=== PATIENT | male | born 1955 | race Caucasian/White ===

== ENCOUNTER 2016-11-29 08:52 | Day surgery (SDC) | payer MEDICARE, BC ==
[~2016-11-29 08:52] MED LIST: Lactated Ringers 1,000 ML IV SCH
[2016-11-29] MEDS ORDERED: fentaNYL 100 MCG/2 ML SDV ONE (10:09)
[2016-11-29] MEDS ORDERED: Propofol 200 MG/20 ML SDV ONE (10:09)
[2016-11-29 13:20] VITALS: BP 123/78
--- NOTE | 2016-11-29 14:32 | OR ---
SURGERY DATE: 11/29/2016. REFERRING PROVIDER: Zohaib Leonard MD. PRE-OPERATIVE DIAGNOSIS: Chronic dysphagia, status post previous cervical fusion surgery. He does get frequent regurgitation of food. Positive tobacco use. The patient does have barium swallow scheduled for tomorrow. POST-OPERATIVE DIAGNOSIS: 1. Mildly prominent area of atypical cells to the pyloric ring/sphincter. This was biopsied x3 bites using the cold forceps. 2. Moderate gastritis involving mainly the antrum. Small antral ulceration present. Biopsies taken from the antrum for path and H. pylori. Biopsy also taken from the periphery of the antral ulcer. 3. No evidence to explain the patient's upper dysphagia. I did not notice any diverticula of the esophagus or pharyngeal area. No pharyngeal masses, strictures, rings noted. Scope passed easily into the esophagus. PROCEDURE: Esophagogastroduodenoscopy with cold biopsy x2 sites. SURGEON: Juan Murphy M.D. ANESTHESIA: Monitored anesthesia care. Wiliam is a 61-year-old male who was brought to the endoscope suite after discussion of risks and benefits (including but not limited to reaction to medication, bleeding, infection, aspiration, perforation). Informed consent was obtained for monitored anesthesia care and esophagogastroduodenoscopy along with possible biopsy and/or dilatation. Pre-procedure exam including oral cavity was unremarkable. IV, oxygen, and monitors were placed. Patient was placed in the left lateral position and sedation was administered. A bite block was placed gently and scope lightly lubricated and passed through the bite block and over the tongue. Hypopharynx and vocal cords were visualized and unremarkable. Scope was passed through the cricopharynx and into the esophagus. The scope was then passed through the distal esophagus and the GE junction was visualized and photographed. The GE junction was unremarkable. Vocal cords were visualized and unremarkable. The scope was advanced into the stomach and gastric nichols was suctioned. Pylorus was identified and intubated and then the scope was advanced to the third portion of the duodenum. The second and third portions of the duodenum were unremarkable. The duodenal bulb was visualized and unremarkable. The scope was brought back into the stomach. The pylorus and the antrum were remarkable for moderate gastritis with a small antral ulceration present. The pyloric ring/sphincter did have mildly prominent area of atypical glandular-like cells. Three bites using the cold forceps were taken from this area and this area was noted to be quite firm. Cold biopsy also taken from the antrum as well as the peripheral aspect of the antral ulcer. Cold biopsy x2 bites was taken from this area to check for H. pylori and sent for path. Angularis, fundus, body, and cardia were unremarkable except for a couple small areas of petechiae consistent with mild gastritis. The stomach was desufflated of air and then the scope was slowly withdrawn, and the esophagus was closely visualized during withdrawal all the way into the posterior pharynx. In the upper esophagus there was an area of heterotopic type mucosa. Cold biopsy x2 bites was taken of this area and sent for path. The patient tolerated the procedure well and went to recovery in stable condition. The patient was monitored until at baseline status. Findings and discharge instructions were reviewed and the patient was discharged in good condition. COMPLICATIONS: None. TOTAL TIME: 15 minutes. ESTIMATED BLOOD LOSS: About 1 mL. RECOMMENDATIONS/FOLLOW-UP: We will await results of path report to determine ideal followup interval. We may consider repeat EGD in 3-6 months to followup on these findings. I will have the patient hold his aspirin for 3 days to limit any chance of bleeding. I have also provided a prescription for omeprazole 40 mg daily. I did recommend to the patient to limit or avoid NSAIDs as much as possible at least until this heals up over the next 4 to 8 weeks. I would like to kindly thank Dr. Zohaib Leonard for this referral. DMB: 11/29/2016 12:06:56 MODL: 11/29/2016 14:15:40 /[id number] MTDD
== END 2016-11-29 12:15 | disposition home or self-care (01) ==
LOC: VM.SDS 08:52
PROVIDERS: ATTEND Family Medicine
DX: K31.9 Disease of stomach and duodenum, unspecified (principal); K29.70 Gastritis, unspecified, without bleeding; K25.9 Gastric ulcer, unspecified as acute or chronic, without hemorrhage or perforation; R13.10 Dysphagia, unspecified; Z98.1 Arthrodesis status; M17.0 Bilateral primary osteoarthritis of knee; F33.9 Major depressive disorder, recurrent, unspecified; Z86.73 Personal history of transient ischemic attack (TIA), and cerebral infarction without residual deficits; G43.909 Migraine, unspecified, not intractable, without status migrainosus; E78.5 Hyperlipidemia, unspecified; R41.3 Other amnesia; F17.210 Nicotine dependence, cigarettes, uncomplicated; M54.2 Cervicalgia; G89.29 Other chronic pain; Z79.82 Long term (current) use of aspirin; Z79.899 Other long term (current) drug therapy
CPT/HCPCS: 00740; 43239; 88305; J2704; J3010; J7120

== ENCOUNTER 2019-12-26 20:39 | Emergency (ER) | payer MEDICARE, BC ==
[2019-12-26] MEDS ORDERED: Lidocaine 1% 30 ML SDV INJECT ONE (20:46)
[2019-12-26 20:53] VITALS: BP 141/84; PULSE 76
--- NOTE | 2019-12-26 21:06 | EDM.PDOC ---
ED HPI GENERAL MEDICAL PROBLEM - General Chief Complaint: Laceration Stated Complaint: LACERATION TO LEFT HAND Time Seen by Provider: 12/26/19 20:45 Source of Information: Reports: Patient History Limitations: Reports: No Limitations - History of Present Illness INITIAL COMMENTS - FREE TEXT/NARRATIVE: Patient presents to ER with a laceration to his left thumb. He was grinding in his shop when his hand slipped and caught. Has good movement of his thumb. States did apply pressure for about 1 1/2 hours prior to coming here as he was having trouble controlling the bleeding. Unsure of last tetanus. Onset: Today, Sudden Duration: Hour(s): Location: Reports: Upper Extremity, Left Quality: Reports: Throbbing Severity: Mild Associated Symptoms: Reports: No Other Symptoms Treatments HOST COORDINATOR: Reports: Dressing(s) Top of Right Thumb Pain Score (Numeric/FACES): 2 - Related Data Allergies Allergy/AdvReac Type Severity Reaction Status Date / Time No Known Drug Allergies Allergy Other Verified 12/26/19 20:56 Home Meds: Home Meds Acetaminophen/HYDROcodone [[place] 325-10 MG] 1 tab PO Q6H PRN 08/03/14 [History] diazePAM [Diazepam] 5 mg PO TID PRN 08/03/14 [History] Aspirin 325 mg PO DAILY 11/23/16 [History] Calcium Carbonate [Calcium] 1,000 mg PO BID 11/23/16 [History] Ibuprofen [Advil] 600 mg PO ASDIRECTED PRN 11/23/16 [History] Ondansetron HCl [Zofran] 4 mg PO Q4H PRN 11/23/16 [History] atorvaSTATin [Lipitor] 40 mg PO DAILY 11/23/16 [History] DULoxetine [Cymbalta] 30 mg PO DAILY 09/23/18 [History] Past Medical History HEENT History: Reports: None Other HEENT History: States difficulty swallowing Cardiovascular History: Reports: High Cholesterol Respiratory History: Reports: None Gastrointestinal History: Reports: GERD Genitourinary History: Reports: None Musculoskeletal History: Reports: Neck Pain, Chronic, Osteoarthritis Other Musculoskeletal History: MYOFACIAL PAIN. CERVICALALGIA. ATROPHY OF MUSCLES OF MULTIPLE SITES Neurological History: Reports: CVA, Head Trauma, Migraines, Other (See Below) Other Neuro History: memory loss Psychiatric History: Reports: Anxiety, Depression Endocrine/Metabolic History: Reports: None Hematologic History: Reports: None Immunologic History: Reports: None Oncologic (Cancer) History: Reports: Basal Cell Carcinoma - Past Surgical History HEENT Surgical History: Reports: None Cardiovascular Surgical History: Reports: None Respiratory Surgical History: Reports: None GI Surgical History: Reports: EGD Neurological Surgical History: Reports: C-Spine, Spinal Fusion, Other (See Below ) Other Neurological Surgeries/Procedures: spine sx afe 11 for tumor Musculoskeletal Surgical History: Reports: Arthroscopic Knee, Other (See Below) Other Musculoskeletal Surgeries/Procedures:: CERVICAL FUSION. SPINE SURGERY Oncologic Surgical History: Reports: None Dermatological Surgical History: Reports: Skin Biopsy, Other (See Below) Social & Family History - Family History Family Medical History: Noncontributory Cardiac: Reports: CT (mother's father) Neurological: Reports: Dementia (Father, paternal grandmother) Endocrine/Metabolic: Reports: Diabetes, type II (mother) Oncologic: Reports: Leukemia (sister) - Tobacco Use Smoking Status *Q: Current Every Day Smoker - Living Situation & Occupation Living situation: Reports: , with Spouse Occupation: Disabled (tool and die technician, disabled 2008) ED ROS GENERAL - Review of Systems Review Of Systems: Comprehensive ROS is negative, except as noted in HPI. ED EXAM, SKIN/RASH Exam: See Below Exam Limited By: No Limitations General Appearance: Alert, WD/WN, No Apparent Distress Extremities: Normal Range of Motion (Good strength noted with flexion and extension of thumb), Normal Capillary Refill, Other (wound to left thumb) Neurological: Alert, Oriented ED SKIN PROCEDURES - Laceration/Wound Repair Left Digit - 1st (Thumb) Appearance: Superficial, Linear, Mildly Contaminated Distal NVT: Neuro & Vascular Intact Anesthetic Type: Local Local Anesthesia - Lidocaine (Xylocaine): 1% Plain Local Anesthetic Volume: 4cc Skin Prep: Saline Exploration/Debridement/Repair: Wound Explored, Explored to Base Closed with: Sutures Lac/Wound length In cm: 2 Suture Size: 4-0 # of Sutures: 4 Suture Type: Nylon, Interrupted, Simple Sterile Dressing Applied: Nurse Tetanus Status Addressed: Yes Complications: No Course - Vital Signs Last Recorded V/S: Last Vital Signs Temp 98.1 F 12/26/19 20:52 Pulse 76 12/26/19 20:52 Resp 12 12/26/19 20:52 BP 141/84 H 12/26/19 20:52 Pulse Ox 97 12/26/19 20:52 - Orders/Labs/Meds Meds: Medications Discontinued Medications Generic Name Dose Route Start Last Admin Trade Name Anu PRN Reason Stop Dose Admin Lidocaine HCl 30 ml 12/26/19 20:46 Xylocaine-Mpf 1% INJECT 12/26/19 20:47 ONETIME ONE Departure - Departure Time of Disposition: 21:08 Disposition: Home, Self-Care 01 Condition: Fair Clinical Impression: Broken skin Laceration of thumb Qualifiers: Encounter type: initial encounter Laterality: left - Discharge Information *PRESCRIPTION DRUG MONITORING PROGRAM REVIEWED*: No *COPY OF PRESCRIPTION DRUG MONITORING REPORT IN PATIENT CARROL: No Instructions: Laceration Care, Adult, [id number] Referrals: Zohaib Leonard MD [Primary Care Provider] - Forms: ED Department Discharge Additional Instructions: 1. Keep wound clean and dry 2. Keep wound covered while at work 3. Wound care instructions- see handout. Watch for signs of infection 4. Sutures out in 10 days 5. Follow up if any concerns. Sepsis Event Note - Evaluation Sepsis Screening Result: No Definite Risk - Focused Exam Vital Signs: Vital Signs Temp Pulse Resp BP Pulse Ox 12/26/19 20:52 98.1 F 76 12 141/84 H 97 Date Exam was Performed: 12/26/19 Time Exam was Performed: 21:06
[2019-12-26] MEDS ORDERED: Diphtheria,Pertussis(Acell),Tetanus Vaccine 0.5 ML Syringe IM ONE (21:07)
[2019-12-26] MEDS ORDERED: Lidocaine 1% 30 ML SDV ONE (21:52)
== END 2019-12-26 21:32 | disposition home or self-care (01) ==
LOC: SUPCPDRO 20:39 → VM.ED 20:39
DX: S61.012A Laceration without foreign body of left thumb without damage to nail, initial encounter (principal); F17.210 Nicotine dependence, cigarettes, uncomplicated; Z79.899 Other long term (current) drug therapy; Z79.82 Long term (current) use of aspirin; W26.9XXA Contact with unspecified sharp object(s), initial encounter
CPT/HCPCS: 12001; 90471; 90715; 99282-25; 99283-GF; J2001

== ENCOUNTER 2022-08-31 08:34 | Day surgery (SDC) | payer MEDICARE, BC ==
[~2022-08-31 08:34] MED LIST changes: +Sodium Chloride 0.9% 10 ML Syringe FLUSH PRN
[2022-08-31] MEDS ORDERED: Propofol 200 MG/20 ML SDV ONE (09:47)
[2022-08-31] MEDS ORDERED: fentaNYL 100 MCG/2 ML SDV ONE (09:47)
[2022-08-31 10:49] VITALS: PULSE 51
[2022-08-31 11:11] VITALS: BP 108/64
== END 2022-08-31 11:35 | disposition home or self-care (01) ==
LOC: VM.SDS 08:34
PROVIDERS: ATTEND Student in an Organized Health Care Education/Training Program
DX: K21.00 Gastro-esophageal reflux disease with esophagitis, without bleeding (principal); K25.9 Gastric ulcer, unspecified as acute or chronic, without hemorrhage or perforation; R13.10 Dysphagia, unspecified; K31.4 Gastric diverticulum; G89.29 Other chronic pain; M54.2 Cervicalgia; M48.02 Spinal stenosis, cervical region; G62.9 Polyneuropathy, unspecified; F41.9 Anxiety disorder, unspecified; M62.519 Muscle wasting and atrophy, not elsewhere classified, unspecified shoulder; F32.A Depression, unspecified; Z79.899 Other long term (current) drug therapy
CPT/HCPCS: 00731; 43239; 88305; J2704; J3010; J7120

== ENCOUNTER 2023-09-09 15:31 | Emergency (ER) | payer MEDICARE, BC ==
[2023-09-09 16:08] LABS: BASOPHILS ABSOLUTE AUTO 0.1 x10^3/uL (0.0-0.2); BASOPHILS PERCENT AUTO 0.6 % (0.2-1.2); EOSINOPHILS ABSOLUTE AUTO 0.4 x10^3/uL (0.0-0.5); EOSINOPHILS PERCENT AUTO 3.6 % (0.0-4.0); HEMATOCRIT 39.9 % (40.0-52.0); HEMOGLOBIN 13.1 g/dL (14.0-18.0); IMMATURE GRAN ABSOLUTE AUTO 0.01 x10^3/uL (0.00-0.07); LYMPHOCYTES ABSOLUTE AUTO 2.1 x10^3/uL (1.0-4.8); LYMPHOCYTES PERCENT AUTO 19.9 % (25.0-50.0); MEAN CORPUSCULAR HEMOGLOBIN 30.8 pg (26.0-32.0); MEAN CORPUSCULAR HGB CONC 32.8 g/dL (32.0-36.0); MEAN CORPUSCULAR VOLUME 93.9 fL (78.0-93.0); MONOCYTES ABSOLUTE AUTO 0.6 x10^3/uL (0.0-0.8); MONOCYTES PERCENT AUTO 5.3 % (2.0-11.0); NEUTROPHILS ABSOLUTE AUTO 7.6 x10^3/uL (1.8-7.7); NEUTROPHILS PERCENT AUTO 70.5 % (50.0-80.0); PLATELET COUNT,PLT 355 x10^3/uL (130-400); RED BLOOD CELL COUNT 4.25 x10^6/uL (4.5-6.0); WHITE BLOOD CELL COUNT,WBC 10.8 x10^3/uL (4.0-10.0)
[2023-09-09 16:24] LABS: A/G RATIO 0.62; ALBUMIN 2.9 g/dL (3.4-5.0); ANION GAP 14.6 mmol/L (5-15); BILIRUBIN TOTAL 0.4 mg/dL (0.2-1.0); C-REACTIVE PROTEIN 2.64 mg/dL (<=0.30); CALCIUM 9.2 mg/dL (8.5-10.1); CREATININE 0.9 mg/dL (0.70-1.30); EST CRCL DRUG DOSING (CG) 73.44 mL/min; POTASSIUM,K 4.6 mmol/L (3.5-5.1); PROTEIN TOTAL,TP 7.6 g/dL (6.4-8.2)
[2023-09-09 17:29] VITALS: BP 125/72; PULSE 75
== END 2023-09-09 17:15 | disposition home or self-care (01) ==
LOC: VM.ED 15:31
DX: J18.9 Pneumonia, unspecified organism (principal); I50.9 Heart failure, unspecified
CPT/HCPCS: 36415; 71046; 80053; 85025; 86140; 99283; 99284

== ENCOUNTER 2025-01-05 14:36 | Inpatient (IN) | payer MEDICARE, BC ==
[2025-01-05] MEDS ORDERED: Sodium Chloride 0.9% 10 ML Syringe FLUSH PRN (14:45)
[2025-01-05 14:55] LABS: BASOPHILS PERCENT AUTO 0.2 % (0.2-1.2); EOSINOPHILS ABSOLUTE AUTO 0.3 x10^3/uL (0.0-0.5); EOSINOPHILS PERCENT AUTO 1.4 % (0.0-4.0); HEMATOCRIT 37.7 % (40.0-52.0); HEMOGLOBIN 12.4 g/dL (14.0-18.0); IMMATURE GRAN ABSOLUTE AUTO 0.14 x10^3/uL (0.00-0.07); LYMPHOCYTES ABSOLUTE AUTO 1.7 x10^3/uL (1.0-4.8); LYMPHOCYTES PERCENT AUTO 9.2 % (25.0-50.0); MEAN CORPUSCULAR HEMOGLOBIN 30.1 pg (26.0-32.0); MEAN CORPUSCULAR HGB CONC 32.9 g/dL (32.0-36.0); MEAN CORPUSCULAR VOLUME 91.5 fL (78.0-93.0); MONOCYTES ABSOLUTE AUTO 1.3 x10^3/uL (0.0-0.8); MONOCYTES PERCENT AUTO 7.2 % (2.0-11.0); NEUTROPHILS PERCENT AUTO 81.2 % (50.0-80.0); PLATELET COUNT,PLT 404 x10^3/uL (130-400); RED BLOOD CELL COUNT 4.12 x10^6/uL (4.5-6.0); WHITE BLOOD CELL COUNT,WBC 18.4 x10^3/uL (4.0-10.0)
[2025-01-05 15:21] LABS: PROTHROMBIN TIME 10.9 SEC (9.6-12.0)
[2025-01-05 15:21] LABS: LACTIC ACID 1.4 mmol/L (0.4-2.0)
[2025-01-05 15:29] LABS: A/G RATIO 0.44; ALANINE AMINOTRANSFERASE,ALT 101 U/L (16-63); ALBUMIN 2.2 g/dL (3.4-5.0); ALKALINE PHOSPHATASE 401 U/L (46-116); ASPARTATE AMNIOTRANSFERASE,AST 56 U/L (15-37); BILIRUBIN TOTAL 0.5 mg/dL (0.2-1.0); BLOOD UREA NITROGEN,BUN 24 mg/dL (7-18); CALCIUM 9.3 mg/dL (8.5-10.1); CARBON DIOXIDE,CO2 27 mmol/L (21-32); CHLORIDE,CL 98 mmol/L (98-107); CREATININE 1.1 mg/dL (0.70-1.30); GLUCOSE RANDOM 152 mg/dL (70-99); POTASSIUM,K 4.3 mmol/L (3.5-5.1); PRO B-TYPE NATRIUR PEPT,BNPPRO 659 pg/mL (<=125); PROTEIN TOTAL,TP 7.2 g/dL (6.4-8.2); SODIUM,NA 135 mmol/L (136-145)
[2025-01-05 15:31] LABS: ANION GAP 14.3 mmol/L (5-15); ESTIMATED GFR 72 mL/min (>=60)
[2025-01-05 15:37] LABS: C-REACTIVE PROTEIN 30.69 mg/dL (<=0.50)
[2025-01-05] MEDS: cefTRIAXone 1 GM Vial IVPUSH ONE (15:40)
[2025-01-05] MEDS: Iopamidol 755 Mg/ML 100 ML Bottle IVPUSH ONE (16:44)
[2025-01-05] MEDS ORDERED: Albuterol/Ipratropium 3.0-0.5 MG/3 ML Neb Soln NEB PRN (17:32)
[2025-01-05] MEDS ORDERED: Ondansetron 4 MG Tab.DIS PO PRN (17:32)
[2025-01-05] MEDS ORDERED: Ondansetron 4 MG/2 ML SDV IV PRN (17:32)
[2025-01-05] MEDS ORDERED: oxyCODONE 5 MG Tab PO PRN (17:32)
[2025-01-05] MEDS ORDERED: Melatonin 3 MG Tab PO PRN (17:32)
[2025-01-05] MEDS ORDERED: Naloxone 0.4 MG/ML SDV IVPUSH PRN (17:32)
[2025-01-05] MEDS ORDERED: HYDROmorphone 0.5 MG/0.5 ML Syringe IVPUSH PRN (17:32)
[2025-01-05] MEDS ORDERED: Acetaminophen/HYDROcodone 325-10 MG Tab PO PRN (17:38)
[2025-01-05] MEDS ORDERED: Diazepam 5 MG Tab PO PRN (17:38)
[2025-01-05] MEDS: Cefepime 2 GM in Sodium Chloride 0.9% 100 ML IV ONE (18:15)
[2025-01-05] MEDS: VANCOmycin 1.5 GM/300 ML 1.5 GM in Premix Bag 1 BAG IV ONE (18:47)
[2025-01-05] MEDS: Meloxicam 7.5 MG Tab PO SCH (21:51)
[2025-01-06] MEDS: Cefepime 2 GM in Sodium Chloride 0.9% 100 ML IV SCH (02:04)
[2025-01-06] MEDS: VANCOmycin 750 MG in Sodium Chloride 0.9% 250 ML IV SCH (06:35)
[2025-01-06 07:07] LABS: BASOPHILS PERCENT AUTO 0.1 % (0.2-1.2); EOSINOPHILS ABSOLUTE AUTO 0.4 x10^3/uL (0.0-0.5); EOSINOPHILS PERCENT AUTO 2.9 % (0.0-4.0); HEMATOCRIT 35.9 % (40.0-52.0); HEMOGLOBIN 11.8 g/dL (14.0-18.0); IMMATURE GRAN ABSOLUTE AUTO 0.15 x10^3/uL (0.00-0.07); LYMPHOCYTES ABSOLUTE AUTO 1.7 x10^3/uL (1.0-4.8); LYMPHOCYTES PERCENT AUTO 11.2 % (25.0-50.0); MEAN CORPUSCULAR HEMOGLOBIN 29.8 pg (26.0-32.0); MEAN CORPUSCULAR HGB CONC 32.9 g/dL (32.0-36.0); MEAN CORPUSCULAR VOLUME 90.7 fL (78.0-93.0); MONOCYTES ABSOLUTE AUTO 1.3 x10^3/uL (0.0-0.8); MONOCYTES PERCENT AUTO 9.1 % (2.0-11.0); NEUTROPHILS ABSOLUTE AUTO 11.2 x10^3/uL (1.8-7.7); NEUTROPHILS PERCENT AUTO 75.7 % (50.0-80.0); PLATELET COUNT,PLT 398 x10^3/uL (130-400); RED BLOOD CELL COUNT 3.96 x10^6/uL (4.5-6.0); WHITE BLOOD CELL COUNT,WBC 14.7 x10^3/uL (4.0-10.0)
[2025-01-06 07:25] LABS: CALCIUM 9.1 mg/dL (8.5-10.1); CREATININE 0.8 mg/dL (0.70-1.30); EST CRCL DRUG DOSING (CG) 77.53 mL/min
[2025-01-06] MEDS: Enoxaparin 40 MG/0.4 ML Syringe SUBCUT SCH (09:06)
[2025-01-06] MEDS: Aspirin 81 MG Tab.EC PO SCH (09:06)
[2025-01-06] MEDS: atorvaSTATin 40 MG Tab PO SCH (09:06)
[2025-01-06] MEDS: Tamsulosin 0.4 MG Cap.ER PO SCH (09:06)
[2025-01-06] MEDS: VARENICLINE TARTRATE 1 MG PO SCH (09:45)
[2025-01-06] MEDS: Lactobacillus Rhamnosus GG (Probiotic) Cap PO SCH (11:52)
[2025-01-06] MEDS: VANCOmycin 1 GM in Sodium Chloride 0.9% 250 ML IV SCH (18:40)
[2025-01-07] MEDS: Cefepime 2 GM in Sodium Chloride 0.9% 100 ML IV SCH (06:18)
[2025-01-07 06:37] VITALS: PULSE 80
[2025-01-07 07:09] LABS: BASOPHILS PERCENT AUTO 0.2 % (0.2-1.2); EOSINOPHILS ABSOLUTE AUTO 0.4 x10^3/uL (0.0-0.5); EOSINOPHILS PERCENT AUTO 3.6 % (0.0-4.0); HEMATOCRIT 33.6 % (40.0-52.0); LYMPHOCYTES ABSOLUTE AUTO 1.8 x10^3/uL (1.0-4.8); LYMPHOCYTES PERCENT AUTO 15.7 % (25.0-50.0); MEAN CORPUSCULAR HGB CONC 32.7 g/dL (32.0-36.0); MEAN CORPUSCULAR VOLUME 91.6 fL (78.0-93.0); MONOCYTES PERCENT AUTO 8.3 % (2.0-11.0); NEUTROPHILS ABSOLUTE AUTO 8.1 x10^3/uL (1.8-7.7); NEUTROPHILS PERCENT AUTO 71.3 % (50.0-80.0); PLATELET COUNT,PLT 388 x10^3/uL (130-400); RED BLOOD CELL COUNT 3.67 x10^6/uL (4.5-6.0); WHITE BLOOD CELL COUNT,WBC 11.4 x10^3/uL (4.0-10.0)
[2025-01-07 07:34] LABS: ALBUMIN 1.7 g/dL (3.4-5.0); CREATININE 0.8 mg/dL (0.70-1.30); EST CRCL DRUG DOSING (CG) 77.53 mL/min; POTASSIUM,K 3.9 mmol/L (3.5-5.1)
[2025-01-07 08:03] LABS: A/G RATIO 0.37; ANION GAP 12.9 mmol/L (5-15); BILIRUBIN TOTAL 0.5 mg/dL (0.2-1.0); CALCIUM 8.8 mg/dL (8.5-10.1); PROTEIN TOTAL,TP 6.3 g/dL (6.4-8.2)
[2025-01-07 08:04] LABS: VANCOMYCIN RANDOM 28.3 ug/mL (5.0-10.0)
[2025-01-07 09:34] VITALS: BP 156/68
[2025-01-08 05:11] LABS: BASO'S 0 /cu mm; EO'S 0 /cu mm; LYMPH'S 518 /cu mm; MONO'S 150 /cu mm; OTHER 0 /cu mm; PMN'S 167 /cu mm
== END 2025-01-07 10:20 | disposition home or self-care (01) | DRG 193 ==
LOC: VM.ED 14:36 → VM.MS 15:54
PROVIDERS: ADMIT Internal Medicine; ATTEND Internal Medicine
PROC: 0W9B3ZZ Drainage of Left Pleural Cavity, Percutaneous Approach (ICD-10-PCS; principal; 2025-01-06)
DX: J18.9 Pneumonia, unspecified organism (principal); J90 Pleural effusion, not elsewhere classified; J15.9 Unspecified bacterial pneumonia; J96.01 Acute respiratory failure with hypoxia; J91.8 Pleural effusion in other conditions classified elsewhere; I50.32 Chronic diastolic (congestive) heart failure; E44.0 Moderate protein-calorie malnutrition; E78.00 Pure hypercholesterolemia, unspecified; K21.9 Gastro-esophageal reflux disease without esophagitis; M19.90 Unspecified osteoarthritis, unspecified site; F41.8 Other specified anxiety disorders; G89.29 Other chronic pain; G43.909 Migraine, unspecified, not intractable, without status migrainosus; F32.9 Major depressive disorder, single episode, unspecified; F17.210 Nicotine dependence, cigarettes, uncomplicated; R91.1 Solitary pulmonary nodule; N40.0 Benign prostatic hyperplasia without lower urinary tract symptoms; G47.00 Insomnia, unspecified; Z68.26 Body mass index [BMI] 26.0-26.9, adult; Z79.1 Long term (current) use of non-steroidal anti-inflammatories (NSAID); Z79.02 Long term (current) use of antithrombotics/antiplatelets; Z79.82 Long term (current) use of aspirin; Z79.899 Other long term (current) drug therapy; Z86.73 Personal history of transient ischemic attack (TIA), and cerebral infarction without residual deficits; Z98.1 Arthrodesis status; Z98.890 Other specified postprocedural states; Z79.891 Long term (current) use of opiate analgesic
CPT/HCPCS: 36415; 71045; 71275; 80053; 83605; 83735; 83880; 84484; 85025; 85379; 85610; 85730; 86140; 87428; 93005; 96374; 99285; J0696; 71046; 80048; 80202; 82945; 83615; 84157; 87070; 87205; 88112; 88305; 89051; 94667; 94760; 99284; A9270-GY; J0692; J1650; J3370; J3372; J7050; Q9967

== ENCOUNTER 2025-05-30 16:40 | Inpatient (IN) | payer MEDICARE, BC ==
[2025-05-30] MEDS ORDERED: Sodium Chloride 0.9% 10 ML Syringe FLUSH PRN (17:07)
[2025-05-30 17:25] LABS: BASOPHILS ABSOLUTE AUTO 0.1 x10^3/uL (0.0-0.2); BASOPHILS PERCENT AUTO 0.4 % (0.2-1.2); EOSINOPHILS ABSOLUTE AUTO 0.2 x10^3/uL (0.0-0.5); EOSINOPHILS PERCENT AUTO 1.2 % (0.0-4.0); IMMATURE GRAN ABSOLUTE AUTO 0.04 x10^3/uL (0.00-0.07); IMMATURE GRAN PERCENT AUTO 0.30 % (0.00-0.43); LYMPHOCYTES ABSOLUTE AUTO 2.2 x10^3/uL (1.0-4.8); LYMPHOCYTES PERCENT AUTO 16.2 % (25.0-50.0); MONOCYTES ABSOLUTE AUTO 0.7 x10^3/uL (0.0-0.8); MONOCYTES PERCENT AUTO 5.3 % (2.0-11.0); NEUTROPHILS ABSOLUTE AUTO 10.4 x10^3/uL (1.8-7.7); NEUTROPHILS PERCENT AUTO 76.6 % (50.0-80.0); PLATELET COUNT,PLT 249 x10^3/uL (130-400); RED BLOOD CELL COUNT 4.83 x10^6/uL (4.5-6.0); WHITE BLOOD CELL COUNT,WBC 13.5 x10^3/uL (4.0-10.0)
[2025-05-30 17:57] LABS: A/G RATIO 0.69; ALANINE AMINOTRANSFERASE,ALT 25.0 U/L (16-63); ASPARTATE AMNIOTRANSFERASE,AST 16.0 U/L (15-37); BILIRUBIN TOTAL 0.3 mg/dL (0.2-1.0); BLOOD UREA NITROGEN,BUN 25.0 mg/dL (7-18); CARBON DIOXIDE,CO2 26.0 mmol/L (21-32); CHLORIDE,CL 105.0 mmol/L (98-107); CREATININE 1.3 mg/dL (0.70-1.30); EST CRCL DRUG DOSING (CG) 47.71 mL/min; GLUCOSE RANDOM 101.0 mg/dL (70-99); POTASSIUM,K 4.1 mmol/L (3.5-5.1); PRO B-TYPE NATRIUR PEPT,BNPPRO 479.0 pg/mL (<=125); PROTEIN TOTAL,TP 7.6 g/dL (6.4-8.2); SODIUM,NA 141.0 mmol/L (136-145)
[2025-05-30 17:58] LABS: ESTIMATED GFR 59.0 mL/min (>=60)
[2025-05-30] MEDS: Iopamidol 755 Mg/ML 100 ML Bottle IVPUSH ONE (19:41)
[2025-05-30 20:55] LABS: APPEARANCE,URINE CLEAR (CLEAR); GLUCOSE,URINE NEGATIVE (NEGATIVE); OCCULT BLOOD,URINE NEGATIVE (NEGATIVE)
[2025-05-30] MEDS ORDERED: Albuterol 0.083% 2.5 MG/3 ML Neb Soln NEB PRN (22:52)
[2025-05-30] MEDS ORDERED: Ondansetron 4 MG/2 ML SDV IV PRN (22:52)
[2025-05-30] MEDS ORDERED: Acetaminophen/HYDROcodone 325-10 MG Tab PO PRN (23:26)
[2025-05-31] MEDS: Pantoprazole 20 MG Tab, Delayed Release PO SCH (06:21)
[2025-05-31 06:51] LABS: BASOPHILS ABSOLUTE AUTO 0.0 x10^3/uL (0.0-0.2); BASOPHILS PERCENT AUTO 0.6 % (0.2-1.2); EOSINOPHILS ABSOLUTE AUTO 0.3 x10^3/uL (0.0-0.5); EOSINOPHILS PERCENT AUTO 4.7 % (0.0-4.0); IMMATURE GRAN ABSOLUTE AUTO 0.03 x10^3/uL (0.00-0.07); IMMATURE GRAN PERCENT AUTO 0.50 % (0.00-0.43); LYMPHOCYTES ABSOLUTE AUTO 1.8 x10^3/uL (1.0-4.8); LYMPHOCYTES PERCENT AUTO 27.2 % (25.0-50.0); MONOCYTES ABSOLUTE AUTO 0.6 x10^3/uL (0.0-0.8); MONOCYTES PERCENT AUTO 9.1 % (2.0-11.0); NEUTROPHILS ABSOLUTE AUTO 3.8 x10^3/uL (1.8-7.7); NEUTROPHILS PERCENT AUTO 57.9 % (50.0-80.0); PLATELET COUNT,PLT 219 x10^3/uL (130-400); RED BLOOD CELL COUNT 4.44 x10^6/uL (4.5-6.0); WHITE BLOOD CELL COUNT,WBC 6.6 x10^3/uL (4.0-10.0)
[2025-05-31] MEDS ORDERED: Non-Formulary Medication 1 Each (Omeprazole [Omeprazole] 20 MG Cap.Cr) PO SCH (07:00)
[2025-05-31 07:08] LABS: BLOOD UREA NITROGEN,BUN 20.0 mg/dL (7-18); CARBON DIOXIDE,CO2 29.0 mmol/L (21-32); CHLORIDE,CL 106.0 mmol/L (98-107); CREATININE 0.9 mg/dL (0.70-1.30); EST CRCL DRUG DOSING (CG) 68.92 mL/min; GLUCOSE RANDOM 99.0 mg/dL (70-99); POTASSIUM,K 4.2 mmol/L (3.5-5.1); SODIUM,NA 141.0 mmol/L (136-145)
[2025-05-31 07:09] LABS: ESTIMATED GFR 92.0 mL/min (>=60)
[2025-05-31] MEDS ORDERED: Calcium Carbonate/Vitamin D3 1250 MG-5 MCG Tab PO SCH (08:00)
[2025-05-31] MEDS ORDERED: Non-Formulary Medication 1 Each (Calcium Carbonate [Calcium] 500 MG Tablet) PO SCH (08:00)
[2025-05-31] MEDS: Calcium Carbonate/Vitamin D3 1250 MG-5 MCG Tab PO SCH (09:07)
[2025-05-31] MEDS: Triamcinolone Acetonide 0.1% Crm 15 GM Tube TOP SCH (09:08)
[2025-05-31 17:39] VITALS: BP 130/70; PULSE 82
== END 2025-05-31 18:15 | disposition left against medical advice (07) | DRG 195 ==
LOC: VM.ED 16:40 → VM.MS 20:56
PROVIDERS: ADMIT Internal Medicine; ATTEND Internal Medicine
DX: J18.9 Pneumonia, unspecified organism (principal); E78.00 Pure hypercholesterolemia, unspecified; K21.9 Gastro-esophageal reflux disease without esophagitis; M54.2 Cervicalgia; M19.90 Unspecified osteoarthritis, unspecified site; G89.29 Other chronic pain; G43.909 Migraine, unspecified, not intractable, without status migrainosus; F41.9 Anxiety disorder, unspecified; I50.9 Heart failure, unspecified; F17.200 Nicotine dependence, unspecified, uncomplicated; N40.0 Benign prostatic hyperplasia without lower urinary tract symptoms; F32.9 Major depressive disorder, single episode, unspecified; Z86.73 Personal history of transient ischemic attack (TIA), and cerebral infarction without residual deficits; Z79.899 Other long term (current) drug therapy; Z79.82 Long term (current) use of aspirin; Z85.828 Personal history of other malignant neoplasm of skin; Z98.1 Arthrodesis status; Z98.890 Other specified postprocedural states
CPT/HCPCS: 36415; 71046; 71275; 80048; 80053; 81003; 83605; 83880; 85025; 87040; 87428-QW; 94640; 96374; 99223; 99284; 99285-25; A9270-GY; J0456; J0692; J0696; J7050; J7512; Q3014; Q9967